=== PATIENT | female | born 1960 | race American Indian/Alaskan Native ===

== ENCOUNTER 2018-02-06 10:57 | Day surgery (SDC) | payer MEDICARE ==
[2018-02-02 11:22] LABS: Basophils % (Auto) 0.7 % (0.0-1.8); Eosinophils # (Auto) 0.1 K/mm3 (0.0-0.4); Eosinophils % (Auto) 1.6 % (0.0-4.3); Hematocrit 39.7 % (30.3-42.9); Hemoglobin 13.5 gm/dl (10.1-14.3); Lymphocytes # (Auto) 2.2 K/mm3 (1.2-5.4); Lymphocytes % (Auto) 34.2 % (13.4-35.0); Mean Corpuscular HGB Conc 34 % (30-34); Mean Corpuscular Hemoglobin 29 pg (28-32); Mean Corpuscular Volume 86 fl (79-97); Monocytes # (Auto) 0.4 K/mm3 (0.0-0.8); Monocytes % (Auto) 6.5 % (0.0-7.3); Platelet Count 206 K/mm3 (140-440); Red Blood Count 4.61 M/mm3 (3.65-5.03); Red Cell Distribution Width 12.5 % (13.2-15.2)
--- NOTE | 2018-02-02 11:28 | Anesthesia Consultation ---
Anesthesia Consult and Med Hx Date of service: 02/02/18 - Airway Anesthetic Teeth Evaluation: Good ROM Head & Neck: Adequate Mental/Hyoid Distance: Adequate Mallampati Class: Class II Intubation Access Assessment: Good - Pulmonary Exam CTA: Yes - Cardiac Exam Cardiac Exam: RRR - Pre-Operative Health Status ASA Pre-Surgery Classification: ASA3 Proposed Anesthetic Plan: General - Pulmonary Hx Asthma: Yes Hx Sleep Apnea: Yes (No CPAP) - Cardiovascular System Hx Hypertension: Yes - Central Nervous System Hx Neuromuscular Disorder: Yes (neuropathy) Hx Back Pain: Yes Hx Psychiatric Problems: Yes (PTSD) - Endocrine Hx Renal Disease: Yes (renal stones) Hx Thyroid Disease: No Hx Hypothyroidism: No Hx Hyperthyroidism: No - Hematic Hx Anemia: No Hx Sickle Cell Disease: No - Other Systems Hx Cancer: No - Additional Comments Anesthesia Medical History Comments: spinal stenosis
[~2018-02-06 10:57] MED LIST: LACTATED RINGERS 1,000 ML IV SCH; NEOSPORIN GU IR ONE; PEPCID IV NR
[2018-02-06 11:51] VITALS: BP 123/62
--- NOTE | 2018-02-06 12:39 | History and Physical Report ---
History of Present Illness Date of examination: 02/06/18 Chief complaint: Post menopausal bleeding History of present illness: Pt is a 57yo WF LMP 9 years ago spontaneously presents for surgical evaluation and treatment of uterine fibroids and postmenopausal bleeding. Endometrial biopsy showed benign atrophic endometrium. She now presents for a Robotic Assisted Total Hysterectomy with Bilateral SalpingoOophorectomy. 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 Family/Genetic History: none Social history: no significant social history Medications and Allergies Allergies Allergy/AdvReac Type Severity Reaction Status Date / Time aspirin AdvReac Restricted Verified 02/01/18 14:05 due to gastric bypass lisinopril AdvReac cough Verified 02/01/18 14:05 Home Medications Medication Instructions Recorded Confirmed Last Taken Type Albuterol Sulfate [Proventil Hfa] 6.7 gm IH PRN PRN 02/02/18 02/06/18 02/04/18 History Allopurinol 300 mg PO DAILY 02/02/18 02/06/18 02/05/18 History Aspirin/Acetaminophen/Caffeine 1 each PO PRN PRN 02/02/18 02/06/18 02/05/18 History [Cvs Headache Relief Caplet] AtorvaSTATin [Lipitor] 40 mg PO QHS 02/02/18 02/06/18 02/05/18 History Calcium Phosphate Trib/Vit D3 1 each PO DAILY 02/02/18 02/06/18 02/05/18 History [Calcium + Vitamin D3 Gummies] Docusate Sodium [Colace] 100 mg PO BID PRN 02/02/18 02/06/18 02/05/18 History Esomeprazole Magnesium [NexIUM] 40 mg PO QDAY 02/02/18 02/06/18 02/05/18 History Gabapentin [Neurontin] 300 mg PO DAILY 02/02/18 02/06/18 02/05/18 History Levothyroxine [Synthroid] 100 mcg PO QAM 02/02/18 02/06/18 02/06/18 06:30 History Losartan Potassium 50 mg PO DAILY 02/02/18 02/06/18 02/05/18 22:30 History Multivitamin Tab [Multiple Vitamin 1 each PO QDAY 02/02/18 02/06/18 02/05/18 History TAB (Theragran)] Ondansetron [Zofran TAB] 4 mg PO DAILY 02/02/18 02/06/18 11/07/17 History Oxybutynin [Ditropan] 5 mg PO DAILY 02/02/18 02/06/18 02/05/18 History Polyethylene Glycol 3350 17 gm PO PRN PRN 02/02/18 02/06/18 02/05/18 History [Smoothlax] Sertraline [Zoloft] 50 mg PO QDAY 02/02/18 02/06/18 02/06/18 06:30 History Vit B Comp/C/Folic/Iron/Vit E 1 each PO DAILY 02/02/18 02/06/18 02/05/18 History [Vitamin B Complex Tablet] Active Meds: Active Medications Famotidine (Pepcid) 20 mg IV PREOP NR Stop: 02/06/18 23:59 Last Admin: 02/06/18 12:29 Dose: 20 mg Lactated Ringer's (Lactated Ringers) 1,000 mls @ 75 mls/hr IV DIRECT BERNA Last Admin: 02/06/18 12:15 Dose: 75 mls/hr Review of Systems All systems: negative - Vital Signs Vital signs: Vital Signs Temp Pulse Resp BP 98.5 F 64 18 130/78 02/02/18 10:35 02/02/18 10:35 02/02/18 10:35 02/02/18 10:35 Temp Pulse Resp BP Pulse Ox 98.0 F 63 16 123/62 97 02/06/18 11:52 02/06/18 11:52 02/06/18 11:52 02/06/18 11:52 02/06/18 11:52 - Physical Exam Breasts: Positive: deferred Cardiovascular: Regular rate Lungs: Positive: Clear to auscultation Abdomen: Positive: normal appearance Genitourinary (Female): Positive: normal external genitalia Uterus: Positive: enlarged Extremities: Positive: normal Results Result Diagrams: 02/02/18 10:45 All other labs normal. Assessment and Plan - Patient Problems (1) Post-menopausal bleeding Onset Date: 02/06/18 Current Visit: Yes Status: Acute (2) Uterine fibroid Onset Date: 02/06/18 Current Visit: Yes Status: Acute Qualifiers: Uterine leiomyoma location: intramural and subserous Qualified Code(s): D25.1 - Intramural leiomyoma of uterus; D25.2 - Subserosal leiomyoma of uterus Plan to address problem: A: Symptomatic uterine fibroids Post menopausal bleeding P: Admit for a Robotic Assisted Total Hysterectomy with Bilateral SalpingoOophorectomy
[2018-02-06] MEDS ORDERED: PEPCID IV NR (13:00)
[2018-02-06] MEDS ORDERED: ANCEF/STERILE WATER 2 GM/20 ML 2 GM/20 ML SYRINGE IV SCH (13:00)
--- NOTE | 2018-02-06 17:01 | Post Anesthesia Evaluation ---
- Post Anesthesia Evaluation Patient Participated: Yes Airway Patent: Yes Stable Respiratory Function: Yes Nausea/Vomiting: No Temp > 96.8F: Yes Pain Manageable: Yes Adequeate Hydration: Yes Anesthesia Complications: No Block Receding Appropriately: Yes Patient on Ventilator: No
== END 2018-02-06 15:40 | disposition home or self-care (01) ==
LOC: OR 10:57
PROVIDERS: ATTEND Obstetrics & Gynecology
DX: D25.9 Leiomyoma of uterus, unspecified (principal); I10 Essential (primary) hypertension; J45.909 Unspecified asthma, uncomplicated; G47.30 Sleep apnea, unspecified; F43.10 Post-traumatic stress disorder, unspecified; G62.9 Polyneuropathy, unspecified; Z88.6 Allergy status to analgesic agent; Z53.8 Procedure and treatment not carried out for other reasons
CPT/HCPCS: 36415; 85025; 86850; 86900; 86901; J0690; J7120

== ENCOUNTER 2018-03-06 10:50 | Observation (INO) | payer MEDICARE ==
[~2018-03-06 10:50] MED LIST changes: -NEOSPORIN GU IR ONE; -PEPCID IV NR; +VERSED IV NR
--- NOTE | 2018-03-06 11:18 | History and Physical Report ---
History of Present Illness Date of examination: 03/06/18 Chief complaint: Postmenopausal bleeding History of present illness: Pt is a 57yo WF LMP 9 years ago spontaneously presents for surgical evaluation and treatment of uterine fibroids and postmenopausal bleeding. Endometrial biopsy showed benign atrophic endometrium. She now presents for a Robotic Assisted Total Hysterectomy with Bilateral SalpingoOophorectomy. 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 Family/Genetic History: none Social history: no significant social history, Medications and Allergies Allergies Allergy/AdvReac Type Severity Reaction Status Date / Time aspirin AdvReac Restricted Verified 03/02/18 12:34 due to gastric bypass lisinopril AdvReac cough Verified 03/02/18 12:34 trazodone AdvReac Unknown Verified 03/06/18 13:52 Home Medications Medication Instructions Recorded Confirmed Last Taken Type Albuterol Sulfate [Proventil Hfa] 6.7 gm IH PRN PRN 02/02/18 03/02/18 03/05/18 History Allopurinol 300 mg PO DAILY 02/02/18 03/02/18 03/05/18 History Aspirin/Acetaminophen/Caffeine 1 each PO PRN PRN 02/02/18 03/02/18 03/05/18 History [Cvs Headache Relief Caplet] AtorvaSTATin [Lipitor] 40 mg PO QHS 02/02/18 03/02/18 03/05/18 History Calcium Phosphate Trib/Vit D3 1 each PO DAILY 02/02/18 03/02/18 03/05/18 History [Calcium + Vitamin D3 Gummies] Docusate Sodium [Colace] 100 mg PO BID PRN 02/02/18 03/02/18 03/05/18 History Esomeprazole Magnesium [NexIUM] 40 mg PO QDAY 02/02/18 03/02/18 03/05/18 History Gabapentin [Neurontin] 300 mg PO DAILY 02/02/18 03/02/18 03/05/18 History Levothyroxine [Synthroid] 100 mcg PO QAM 02/02/18 03/02/18 03/05/18 History Losartan Potassium 50 mg PO DAILY 02/02/18 03/02/18 03/05/18 History Multivitamin Tab [Multiple Vitamin 1 each PO QDAY 02/02/18 03/02/18 03/05/18 History TAB (Theragran)] Ondansetron [Zofran TAB] 4 mg PO DAILY 02/02/18 03/02/18 03/05/18 History Oxybutynin [Ditropan] 5 mg PO DAILY 02/02/18 03/02/18 03/05/18 History Polyethylene Glycol 3350 17 gm PO PRN PRN 02/02/18 03/02/18 03/05/18 History [Smoothlax] Sertraline [Zoloft] 50 mg PO QDAY 02/02/18 03/06/18 03/06/18 08:30 History Vit B Comp/C/Folic/Iron/Vit E 1 each PO DAILY 02/02/18 03/02/18 03/05/18 History [Vitamin B Complex Tablet] hydrOXYzine PAMOATE [Vistaril] 25 mg PO HS PRN 03/02/18 03/02/18 03/05/18 History Active Meds: Active Medications Lactated Ringer's (Lactated Ringers) 1,000 mls @ 100 mls/hr IV DIRECT BERNA Cefazolin Sodium (Ancef/Sterile Water 2 Gm/20 Ml) 2 gm in 20 mls @ 80 mls/hr IV PREOP BERNA; Protocol Midazolam HCl (Versed) 2 mg IV PREOP NR Stop: 03/06/18 23:59 Review of Systems All systems: negative - Physical Exam Breasts: Positive: deferred Cardiovascular: Regular rate Lungs: Positive: Clear to auscultation Abdomen: Positive: normal appearance, soft Genitourinary (Female): Positive: normal external genitalia Uterus: Positive: enlarged Extremities: Positive: normal Results Result Diagrams: 03/06/18 13:37 All other labs normal. Ultrasound: report reviewed Assessment and Plan - Patient Problems (1) Uterine fibroid Onset Date: 03/06/18 Current Visit: No Status: Acute Qualifiers: Uterine leiomyoma location: intramural and subserous Qualified Code(s): D25.1 - Intramural leiomyoma of uterus; D25.2 - Subserosal leiomyoma of uterus Plan to address problem: A: Symptomatic uterine fibroids Post menopausal bleeding P: Admit for a Robotic Assisted Total Hysterectomy with Bilateral SalpingoOophorectomy. (2) Post-menopausal bleeding Onset Date: 03/06/18 Current Visit: No Status: Acute
[2018-03-06] MEDS ORDERED: ANCEF/STERILE WATER 2 GM/20 ML 2 GM/20 ML SYRINGE IV SCH (12:00)
[2018-03-06 14:01] LABS: Basophils % (Auto) 0.7 % (0.0-1.8); Eosinophils # (Auto) 0.1 K/mm3 (0.0-0.4); Eosinophils % (Auto) 1.7 % (0.0-4.3); Hemoglobin 13.6 gm/dl (10.1-14.3); Lymphocytes # (Auto) 1.9 K/mm3 (1.2-5.4); Lymphocytes % (Auto) 25.9 % (13.4-35.0); Mean Corpuscular HGB Conc 33 % (30-34); Mean Corpuscular Hemoglobin 29 pg (28-32); Mean Corpuscular Volume 87 fl (79-97); Monocytes # (Auto) 0.5 K/mm3 (0.0-0.8); Platelet Count 191 K/mm3 (140-440); Red Blood Count 4.73 M/mm3 (3.65-5.03); Red Cell Distribution Width 12.8 % (13.2-15.2)
[2018-03-06] MEDS ORDERED: METHYLENE BLUE ONE (14:22)
[2018-03-06] MEDS ORDERED: NEOSPORIN GU IR ONE ×2 (14:22→16:24)
[2018-03-06] MEDS ORDERED: MARCAINE 0.25% INFILTRATI ONE ×2 (14:22→16:24)
[2018-03-06] MEDS ORDERED: XYLOCAINE MPF 2% ONE (14:45)
[2018-03-06] MEDS ORDERED: ZEMURON IV ONE (14:45)
[2018-03-06] MEDS ORDERED: DILAUDID ONE (14:46)
[2018-03-06] MEDS ORDERED: DIPRIVAN 10 MG/ML IV ONE (14:46)
--- NOTE | 2018-03-06 14:58 | Anesthesia Consultation ---
Anesthesia Consult and Med Hx - Airway Anesthetic Teeth Evaluation: Poor ROM Head & Neck: Adequate Mental/Hyoid Distance: Adequate Mallampati Class: Class II Intubation Access Assessment: Good - Pulmonary Exam CTA: Yes - Cardiac Exam Cardiac Exam: RRR - Pre-Operative Health Status ASA Pre-Surgery Classification: ASA3 Proposed Anesthetic Plan: General - Pulmonary Hx Asthma: Yes Hx Sleep Apnea: Yes (No CPAP) - Cardiovascular System Hx Hypertension: Yes - Central Nervous System Hx Neuromuscular Disorder: Yes (neuropathy) Hx Back Pain: Yes Hx Psychiatric Problems: Yes (PTSD) - Endocrine Hx Thyroid Disease: No - Other Systems Hx Cancer: No
--- NOTE | 2018-03-06 14:59 | Anesthesia Day of Surgery ---
Anesthesia Day of Surgery - Day of Surgery Patient Examined: Yes Patient H&P Reviewed: Yes Patient is NPO: Yes
[2018-03-06] MEDS ORDERED: WATER FOR IRRIG STERILE IR ONE (16:24)
[2018-03-06] MEDS ORDERED: NACL 0.9% IR ONE ×2 (16:24)
[2018-03-06] MEDS ORDERED: LACTATED RINGERS 1,000 ML ONE (16:36)
[2018-03-06] MEDS ORDERED: ZOFRAN ONE (16:54)
[2018-03-06] MEDS ORDERED: ROBINUL ONE (17:15)
[2018-03-06] MEDS ORDERED: BLOXIVERZ ONE ×2 (17:16)
--- NOTE | 2018-03-06 18:04 | Operative Report ---
Operative Report Operative Report: Date of procedure: 03/06/2018 Pre-operative diagnosis: 1. Symptomatic uterine fibroids 2. Postmenopausal bleeding Post-operative diagnosis: Same Procedure name(s): 1. Robotic-assisted total hysterectomy 2. Bilateral salpingo-oophorectomy Surgeon: Deuce Hou MD Automatic Print Developer: MAYANK Gonzáles Anesthesia: Gen. endotracheal intubation EBL: Less than 100 mL's Findings: A 12 week size myomatous uterus with atrophic ovaries bilaterally, and evidence of previous tubal ligation bilaterally. Bowel adhesions to the anterior abdominal wall. Procedure: After the patient's first correctly identified she was prepped and draped in the usual sterile fashion and placed in the dorsolithotomy position. The bladder was first catheterized using Smith catheter and the speculum was placed in the vagina and the anterior lip of the cervix was grasped using a single-tooth tenaculum, and the medium Vesicare cup was placed. The tenaculum and speculum was then removed from the vagina and attention was then turned to the abdomen. The skin knife was used to make a small incision approximately 1 cm above the umbilicus through which a 12 mm trocar was placed under direct visualization. After adequate amount of abdominal insufflation visualization of the pelvic organs found the uterus to be enlarged and the tubes showed evidence of previous tubal ligation bilaterally, and the ovaries were atrophic bilaterally. A right and left paramedian incision was made through which the 8 mm trochars were placed under direct visualization and a 5 mm trocar was placed in the right lower quadrant. No trochars were placed near the bowel adhesions. The patient was then placed in steep Trendelenburg positioning and the robot was docked on the patient's left side. After all the robotic ports were connected and adequate functioning of the robotic arms were tested the surgeon then proceeded to the console to begin the hysterectomy. First the left round ligament was grasped, cauterized and cut, the left infundibulopelvic ligament was grasped, cauterized and cut, and the left fallopian tube also grasped, cauterized and cut along the mesosalpinx thus freeing the left ovary from the left pelvic sidewall. The same procedure was performed on the right. The right round ligament was grasped, cauterized and cut, the right infundibulopelvic ligament was grasped, cauterized and cut, and the right fallopian tube also grasped, cauterized and cut along the mesosalpinx thus freeing the right ovary from the right pelvic sidewall. The bladder flap was taken down anteriorly and the uterine vessels were grasped, cauterized and cut bilaterally. The cardinal ligaments were sequentially grasped, cauterized and cut down to the level of the uterosacral ligaments. At this time the posterior colpotomy was performed over the Vcare cup, and the cervix was circumscribed beginning posteriorly and meeting anteriorly until the cervix was freed. The cervix, uterus, tubes and ovaries was then removed through the vagina and sent to pathology. The vaginal cuff was then closed using 2-0 Vloc suture in a running fashion. Irrigation was then performed and after good hemostasis was achieved the procedure was considered complete. The Tisseel sealant was then sprayed across the vaginal cuff site, and after excellent hemostasis was assured Interceed was placed across the vaginal cuff site. All instruments were then removed from the abdominal cavity. And each incision was closed using 0 Vicryl suture in a [id number] configuration on the fascia followed by 4-0 Monocryl suture in a sub-cuticular fashion on the skin. Each incision was also infiltrated using 0.5% Marcaine solution. The vaginal pack was removed. The patient tolerated the procedure well and was transported to the recovery room in stable condition.
[2018-03-06] MEDS ORDERED: NORCO 5/325 PO PRN (18:05)
[2018-03-06] MEDS ORDERED: PERCOCET 5/325 PO PRN (18:05)
[2018-03-06] MEDS ORDERED: TYLENOL PO PRN (18:05)
[2018-03-06] MEDS ORDERED: MILK OF MAGNESIA PO PRN (18:05)
[2018-03-06] MEDS ORDERED: NARCAN 0.4 MG/1 ML IV PRN ×2 (18:05→18:10)
[2018-03-06] MEDS ORDERED: REGLAN IV PRN (18:05)
[2018-03-06] MEDS ORDERED: BENADRYL IV PRN (18:10)
[2018-03-06] MEDS ORDERED: TORADOL IV SCH (19:00)
[2018-03-06] MEDS ORDERED: MORPHINE PCA 30MG/30ML IV SCH (19:00)
[2018-03-06] MEDS ORDERED: NACL 0.9% 1000 ML 1,000 ML IV SCH (19:00)
[2018-03-06] MEDS ORDERED: ANCEF/NS 1 GM/50 ML 1 GM/50 ML BAG IV SCH (19:00)
[2018-03-06] MEDS ORDERED: MORPHINE PCA 30MG/30ML IV ONE (19:02)
[2018-03-06] MEDS ORDERED: NACL 0.9% 1000 ML 1,000 ML ONE (19:14)
--- NOTE | 2018-03-06 22:00 | Post Anesthesia Evaluation ---
- Post Anesthesia Evaluation Patient Participated: Yes Airway Patent: Yes Stable Respiratory Function: Yes Nausea/Vomiting: No Temp > 96.8F: Yes Pain Manageable: Yes Adequeate Hydration: Yes Anesthesia Complications: No
[2018-03-06] MEDS: COLACE PO SCH (22:15)
[2018-03-07] MEDS: ceFAZolin 1 GM in NACL 0.9% 20 ML IV SCH ×2 (00:02→08:47)
[2018-03-07] MEDS: ZOFRAN IV PRN ×2 (00:13→08:44)
[2018-03-07 03:36] LABS: Hematocrit 36.7 % (30.3-42.9); Hemoglobin 12.7 gm/dl (10.1-14.3)
--- NOTE | 2018-03-07 08:11 | Progress Note ---
Assessment and Plan - Patient Problems (1) Uterine fibroid Onset Date: 03/06/18 Current Visit: No Status: Resolved Qualifiers: Uterine leiomyoma location: intramural and subserous Qualified Code(s): D25.1 - Intramural leiomyoma of uterus; D25.2 - Subserosal leiomyoma of uterus (2) Post-menopausal bleeding Onset Date: 03/06/18 Current Visit: No Status: Resolved (3) Status post robot-assisted surgical procedure Onset Date: 03/07/18 Current Visit: Yes Status: Resolved Plan to address problem: A: S/P RATH with BSO - POD #1 Doing well P: Advance diet as tolerated Anticipate discharge this afternoon Subjective - Subjective Date of service: 03/07/18 Principal diagnosis: s/p RATH with BSO - POD #1 Interval history: Pt is s/p a Robotic Assisted Total Hysterectomy with Bilateral SalpingoOophorectomy and feeling well. She is tolerating a liquid diet without nausea or vomiting. Pain is controlled. Patient reports: appetite normal, voiding normally, pain well controlled, ambulating normally, no dizzy ambulation, no flatus, no nauseated Objective - Vital Signs Latest vital signs: Vital Signs Temp Pulse Resp BP Pulse Ox 03/07/18 05:58 98.8 F 87 20 117/54 92 03/07/18 02:35 22 03/07/18 01:30 97.7 F 83 20 127/56 96 03/06/18 20:13 97.5 F L 95 H 18 141/66 96 03/06/18 19:50 24 03/06/18 19:26 30 H 03/06/18 19:00 96 H 24 162/71 100 03/06/18 18:45 96 H 30 H 156/73 100 03/06/18 18:30 98 H 21 155/75 100 03/06/18 18:25 94 H 10 L 164/69 100 03/06/18 18:20 97 H 24 150/76 97 03/06/18 18:15 103 H 26 H 155/78 97 03/06/18 18:10 97.2 F L 108 H 14 152/76 97 03/06/18 13:10 98 F 74 18 123/54 97 Intake and Output 03/06/18 03/07/18 03/07/18 22:59 06:59 14:59 Intake Total 600 120 Output Total 25 800 Balance 575 -680 Intake: IV 600 Oral 120 Output: Urine 25 800 Indwelling Catheter 800 Other: Total, Intake Amount 120 Total, Output Amount 800 # Bowel Movements 1 Weight 111 kg - Exam Cardiovascular: Present: Regular rate Lungs: Present: Clear to auscultation Abdomen: Present: normal appearance, soft Extremities: Present: normal Incision: Present: normal, dry, intact - Labs Labs: Abnormal lab results 03/06/18 Range/Units 13:37 RDW 12.8 L (13.2-15.2) % Laboratory Tests 03/06/18 03/06/18 03/07/18 13:37 13:37 02:58 WBC 7.3 RBC 4.73 Hgb 13.6 12.7 Hct 41.0 36.7 MCV 87 MCH 29 MCHC 33 RDW 12.8 L Plt Count 191 Lymph % (Auto) 25.9 [place] % (Auto) 7.0 Eos % (Auto) 1.7 Baso % (Auto) 0.7 Lymph # 1.9 [place]ully # 0.5 Eos # 0.1 Baso # 0.0 Seg Neutrophils % 64.7 Seg Neutrophils # 4.8 Blood Type O POSITIVE Antibody Screen Negative
[2018-03-07] MEDS: COLACE PO SCH (10:30)
--- NOTE | 2018-03-07 14:51 | Discharge Summary ---
Providers - Providers Date of Admission: 03/06/18 18:05 Date of discharge: 03/07/18 Attending physician: SAM TELLEZ Primary care physician: UMBERTO ZARCO Hospitalization Reason for admission: other (Symptomatic uterine fibroids; Postmenopausal bleeding) Procedure: other (Robotic Assisted Total Hysterectomy with Bilateral SalpingoOophorectomy) Episiotomy: none Laceration: none Incision: normal, dry, intact Other procedures: none complications: none Discharge diagnosis: other (s/p RATH with BSO) Hospital course: Pt is a 57yo WF LMP 9 years ago spontaneously presents for surgical evaluation and treatment of uterine fibroids and postmenopausal bleeding. Endometrial biopsy showed benign atrophic endometrium. She underwent an uncomplicated Robotic Assisted Total Hysterectomy with Bilateral SalpingoOophorectomy and tolerated the procedure well. By POD #1 she was tolerating a reg diet without nausea or vomiting, ambulating and voiding without difficulty. She was therefore discharged to home on POD #1 in stable condition.. Condition at discharge: Good Disposition: DC-01 TO HOME OR SELFCARE - Discharge Diagnoses (1) Uterine fibroid Status: Resolved Qualifiers: Uterine leiomyoma location: intramural and subserous Qualified Code(s): D25.1 - Intramural leiomyoma of uterus; D25.2 - Subserosal leiomyoma of uterus (2) Post-menopausal bleeding Status: Resolved (3) Status post robot-assisted surgical procedure Status: Resolved Plan - Discharge Medications Prescriptions: HYDROcodone/APAP 5-325 [[place] 5-325 mg TAB] 1 each PO Q6HR PRN #30 tablet PRN Reason: Pain, Moderate (4-6) Ibuprofen [Motrin] 800 mg PO Q8HR PRN #30 tablet PRN Reason: Moder Pain Unrelieved By [place] - Provider Discharge Summary Activity: routine, no sex for 6 weeks, no heavy lifting 4 weeks, no strenuous exercise Diet: routine Instructions: routine Additional instructions: [] Smoking cessation referral if applicable(refer to patient education folder for contact #) [] Refer to [facility] Booklet Call your doctor immediately for: * Fever > 100.5 * Heavy vaginal bleeding ( >1 pad per hour) * Severe persistent headache * Shortness of breath * Reddened, hot, painful area to leg or breast * Drainage or odor from incision. * Keep incision clean and dry at all times and follow doctor's instructions regarding bathing/showering - Follow up plan Follow up: UMBERTO ZARCO MD [Primary Care Provider] - 7 Days SAM TELLEZ MD [Staff Physician] - 14 Days
[2018-03-07 15:21] VITALS: BP 104/43
== END 2018-03-07 16:10 | disposition home or self-care (01) ==
LOC: OR 10:50 → OB 18:05
PROVIDERS: ADMIT Obstetrics & Gynecology; ATTEND Obstetrics & Gynecology
DX: D25.9 Leiomyoma of uterus, unspecified (principal); I10 Essential (primary) hypertension; J45.909 Unspecified asthma, uncomplicated
CPT/HCPCS: 36415; 58552; 85014; 85018; 85025; 86850; 86900; 86901; 88307; 90471; 96374; 96375; 96376; A4217; C9250; G0378; J0690; J1170; J1885; J2250; J2270; J2405; J2704; J2710; J7030; J7120; S2900; Q9968